=== PATIENT | female | born 1975 | race Caucasian/White ===

== ENCOUNTER 2021-10-11 07:43 | Outpatient (CLI) | payer OTHER ==
[2021-10-11] MEDS ORDERED: Iopamidol 300 61% 100 ML VIAL FS ONE (12:10)
== END 2021-10-11 07:44 | disposition home or self-care (01) ==
LOC: CSHCT 07:43
PROVIDERS: ATTEND Internal Medicine Gastroenterology
DX: R10.32 Left lower quadrant pain (principal); Z12.11 Encounter for screening for malignant neoplasm of colon; N85.2 Hypertrophy of uterus; D25.9 Leiomyoma of uterus, unspecified
CPT/HCPCS: 74177; Q9967

== ENCOUNTER 2024-01-30 09:22 | Outpatient (CLI) | payer OTHER | END 2024-01-30 09:23 | disposition home or self-care (01) | LOC: CSHMRI 09:22 | PROVIDERS: ATTEND Orthopaedic Surgery | DX: M77.11 Lateral epicondylitis, right elbow (principal) ==